=== PATIENT | female | born 1930 | race Caucasian/White ===

== ENCOUNTER 2016-12-21 05:52 | Day surgery (SDC) | payer OTHER ==
[~2016-12-21] VITALS: Ht 165.1 cm; Wt 77.1 kg
[~2016-12-21 05:52] MED LIST: ADVAIR 250/501 DISK IH; ALDACTONE50 MG PO; AMLODIPINE BESY10 MG PO; ASPIR 8181 M1 PO; Advair 250/50 Diskus IH; Anusol HC,Anucort-HC PR; CARVEDILOL6.25 MG PO; CLARITIN,ALAVAR10 MG PO; CLARITIN10 M3 PO; DIOVAN HCT 11 TABLET PO; DIOVAN160 MG PO; DULERA 200 MCG/13 GM IH; Diovan PO; DuoNeb IH; FLONASE16 G1 BOTH NARES; FLOVENT 11120 INHALA IH; GABAPENTIN600 MG PO; HYDROCODON-ACE1 EAC7 PO; HYZAAR 100-11 TABLET PO; IRON325 M1 PO; K-DUR20 MEQ PO; LATANOPROST2.5 ML BOTH EYES; LEXAPRO10 MG PO; LOSARTAN POTASS50 MG PO; LOW DOSE ASPIRI81 M2 PO; Levaquin PO; NAPROSYN500 MG PO; NORCO 5/3251 TABLET PO; NORVASC10 MG PO; PROAIR HFA8.5 GM IH; PROTONIX40 MG PO; PROVENTIL HFA6.7 GM IH; Protonix PO; SINGULAIR10 MG PO; SPIRONOLACTONE50 MG PO; TAMIFLU75 MG PO; TYLENOL EXTRA500 MG PO; VITAMIN D31000 UNIT PO; Vitamin D PO; ZYRTEC10 M3 PO; predniSONE PO
[2016-12-21 06:32] VITALS: BP 125/67
[2016-12-21 09:23] VITALS: BP 136/63
[2016-12-21 10:23] VITALS: BP 120/52
== END 2016-12-21 10:35 | disposition home or self-care (01) ==
LOC: SDC 05:52
DX: N13.5 Crossing vessel and stricture of ureter without hydronephrosis (principal); Z90.5 Acquired absence of kidney
CPT/HCPCS: 74000; C1876; J0692; J2405; J7050

== ENCOUNTER → 2016-12-26 | Outpatient (CLI) | payer OTHER | END | disposition home or self-care (01) | LOC: AMB 08:51 | DX: Z45.2 Encounter for adjustment and management of vascular access device (principal); I87.8 Other specified disorders of veins; Z85.038 Personal history of other malignant neoplasm of large intestine; Z92.21 Personal history of antineoplastic chemotherapy ==

== ENCOUNTER 2017-05-02 08:25 | Day surgery (SDC) | payer OTHER ==
[~2017-05-02] VITALS: Ht 160 cm; Wt 78.9 kg
[~2017-05-02 08:25] MED LIST changes: +ALDACTONE25 MG PO; +ALLEGRA ALLERG180 MG PO; +MELATONIN10 M1 PO; -SPIRONOLACTONE50 MG PO
[2017-05-02 08:58] VITALS: BP 161/69
[2017-05-02 10:50] VITALS: BP 155/66
[2017-05-02 12:02] VITALS: BP 140/68
== END 2017-05-02 12:00 | disposition home or self-care (01) ==
LOC: SDC 08:25
DX: N13.5 Crossing vessel and stricture of ureter without hydronephrosis (principal); I10 Essential (primary) hypertension; J45.909 Unspecified asthma, uncomplicated; K21.9 Gastro-esophageal reflux disease without esophagitis; I45.10 Unspecified right bundle-branch block
CPT/HCPCS: 74000; 76000; C1876; J0131; J3010

== ENCOUNTER → 2017-05-28 | Outpatient (CLI) | payer OTHER | END | disposition home or self-care (01) | LOC: EKG 13:00 | DX: I35.0 Nonrheumatic aortic (valve) stenosis (principal) | CPT/HCPCS: 93306 ==

== ENCOUNTER 2017-08-19 07:49 | Day surgery (SDC) | payer OTHER ==
[~2017-08-19] VITALS: Ht 160 cm; Wt 81.7 kg
[2017-08-19 09:23] VITALS: BP 156/70
[2017-08-19 11:06] VITALS: BP 167/72
[2017-08-19 11:41] VITALS: BP 143/65
== END 2017-08-19 11:55 | disposition home or self-care (01) ==
LOC: SDC 07:49
DX: N13.5 Crossing vessel and stricture of ureter without hydronephrosis (principal); Z90.5 Acquired absence of kidney; Z87.440 Personal history of urinary (tract) infections; Z86.19 Personal history of other infectious and parasitic diseases; I10 Essential (primary) hypertension; J45.909 Unspecified asthma, uncomplicated; Z85.43 Personal history of malignant neoplasm of ovary
CPT/HCPCS: 74000; 76000; 87077; 87086; 87186; C1758; J0692; J3010; J7050

== ENCOUNTER 2017-10-07 19:44 | Inpatient (IN) | payer OTHER ==
[~2017-10-07] VITALS: Ht 160 cm; Wt 80.4 kg
[~2017-10-07 19:44] MED LIST changes: -ALDACTONE25 MG PO; -CARVEDILOL6.25 MG PO; -GABAPENTIN600 MG PO; -LATANOPROST2.5 ML BOTH EYES; -LEXAPRO10 MG PO; -PROAIR HFA8.5 GM IH; -SINGULAIR10 MG PO; -TYLENOL EXTRA500 MG PO; -VITAMIN D31000 UNIT PO
[2017-10-07 21:30] LABS: HEMATOCRIT 32.1 % (36.0-46.0); MCH 32.1 PG (29.0-34.0); MCHC 34.3 G/DL (30.0-36.0); MCV 93.6 FL (83-99); PLATELET COUNT 250 K/uL (156-360); RBC DIS.WIDTH-CV 13.2 % (11.8-14.6); RBC DIS.WIDTH-SD 45.6 % (39-53); RED BLOOD COUNT 3.43 M/uL (3.80-5.20); WHITE BLOOD COUNT 15.8 K/uL (4.1-10.2)
[2017-10-07 21:43] LABS: CHLORIDE 105 mEq/L (99-109); POTASSIUM 4.7 mEq/L (3.7-5.4); SODIUM 134 mEq/L (136-147)
[2017-10-07 21:44] LABS: GLUCOSE 130 mg/dL (70-99)
[2017-10-07 21:48] LABS: GFR ESTIMATE (CALCULATED) 25 mL/min/
[2017-10-07 21:49] LABS: UREA NITROGEN (BUN) 39 mg/dL (9-23)
[2017-10-08 08:52] LABS: HEMATOCRIT 31.7 % (36.0-46.0); HEMOGLOBIN 10.6 G/DL (11.9-15.5); MCH 31.5 PG (29.0-34.0); MCHC 33.4 G/DL (30.0-36.0); MCV 94.1 FL (83-99); PLATELET COUNT 229 K/uL (156-360); RBC DIS.WIDTH-CV 13.2 % (11.8-14.6); RBC DIS.WIDTH-SD 45.7 % (39-53); RED BLOOD COUNT 3.37 M/uL (3.80-5.20)
[2017-10-08 09:05] LABS: CHLORIDE 110 mEq/L (99-109); SODIUM 134 mEq/L (136-147)
[2017-10-08 09:07] LABS: GLUCOSE 108 mg/dL (70-99)
[2017-10-08 09:11] LABS: CREATININE 1.7 mg/dL (0.6-1.3); GFR ESTIMATE (CALCULATED) 30 mL/min/
[2017-10-08 09:12] LABS: UREA NITROGEN (BUN) 46 mg/dL (9-23)
[2017-10-08] MEDS ORDERED: PROAIR HFA8.5 GM IH (14:38)
[2017-10-08] MEDS ORDERED: GABAPENTIN600 MG PO (14:38)
[2017-10-08] MEDS ORDERED: LEXAPRO10 MG PO (14:38)
[2017-10-08] MEDS ORDERED: LATANOPROST2.5 ML BOTH EYES (14:39)
[2017-10-08] MEDS ORDERED: SINGULAIR10 MG PO (14:39)
[2017-10-08] MEDS ORDERED: ALDACTONE50 MG PO (14:39)
[2017-10-08] MEDS ORDERED: PROTONIX40 MG PO (14:39)
[2017-10-08] MEDS ORDERED: TYLENOL EXTRA500 MG PO (14:39)
[2017-10-08] MEDS ORDERED: CARVEDILOL6.25 MG PO (14:39)
[2017-10-08] MEDS ORDERED: FLONASE16 G1 BOTH NARES (14:39)
[2017-10-08] MEDS ORDERED: VITAMIN D31000 UNIT PO (14:39)
[2017-10-08] MEDS ORDERED: COZAAR25 MG PO (14:42)
[2017-10-08] MEDS ORDERED: CLARITIN,ALAVAR10 MG PO (14:42)
[2017-10-08] MEDS ORDERED: ADVAIR 250/501 DISK IH (14:42)
[2017-10-08] MEDS ORDERED: PHENAZOPYRIDIN100 MG PO (14:43)
[2017-10-08] MEDS ORDERED: LEVAQUIN250 MG PO (14:43)
[2017-10-08] MEDS ORDERED: DIOVAN HCT 11 TABLET PO (14:43)
[2017-10-08] MEDS ORDERED: AMLODIPINE BESY10 MG PO (14:44)
[2017-10-08] MEDS ORDERED: ADULT ASPIRIN R81 MG PO (14:44)
[2017-10-08 19:05] VITALS: BP 141/63
[2017-10-08 22:36] VITALS: BP 103/57
[2017-10-08 23:51] VITALS: BP 115/57
[2017-10-09 04:02] VITALS: BP 136/76
[2017-10-09 06:49] LABS: BASOPHIL (%) 0.3 % (0-1); EOSINOPHIL COUNT 0.1 K/uL (0-0.3); HEMATOCRIT 29.8 % (36.0-46.0); HEMOGLOBIN 9.7 G/DL (11.9-15.5); IMMATURE GRANULOCYTE (%) 0.8 % (0.0-0.7); LYMPHOCYTE COUNT 1.7 K/uL (1.0-2.8); MCH 30.7 PG (29.0-34.0); MCHC 32.6 G/DL (30.0-36.0); MCV 94.3 FL (83-99); MONOCYTE (%) 6.4 % (3-12); MONOCYTE COUNT 0.7 K/uL (0-0.8); NEUTROPHIL (%) 74.5 % (45-76); NEUTROPHIL COUNT 7.5 K/uL (1.8-6.4); PLATELET COUNT 243 K/uL (156-360); RBC DIS.WIDTH-CV 13.2 % (11.8-14.6); RBC DIS.WIDTH-SD 46.2 % (39-53); RED BLOOD COUNT 3.16 M/uL (3.80-5.20); WHITE BLOOD COUNT 10.1 K/uL (4.1-10.2)
[2017-10-09 07:17] LABS: CREATININE 1.6 MG/DL (0.6-1.3); GFR ESTIMATE (CALCULATED) 33 mL/min/; GLUCOSE 108 mg/dL (70-99); SODIUM 139 MEQ/L (136-147); UREA NITROGEN (BUN) 47 mg/dL (9-23)
[2017-10-09 07:22] LABS: CHLORIDE 112 MEQ/L (99-109)
[2017-10-09 08:17] VITALS: BP 156/72
[2017-10-09 11:43] VITALS: BP 173/77
[2017-10-09] MEDS ORDERED: DIOVAN HCT 11 TABLET PO (13:00)
[2017-10-09 15:56] VITALS: BP 176/70
[2017-10-09 20:00] VITALS: BP 141/67
[2017-10-09 22:35] LABS: C DIFF TOXIN NEGATIVE (NEGATIVE)
[2017-10-09 23:57] VITALS: BP 145/66
[2017-10-10 08:52] LABS: HEMATOCRIT 30.1 % (36.0-46.0); HEMOGLOBIN 9.9 G/DL (11.9-15.5); MCH 31.2 PG (29.0-34.0); MCHC 32.9 G/DL (30.0-36.0); PLATELET COUNT 254 K/uL (156-360); RBC DIS.WIDTH-CV 13.4 % (11.8-14.6); RBC DIS.WIDTH-SD 46.7 % (39-53); RED BLOOD COUNT 3.17 M/uL (3.80-5.20); WHITE BLOOD COUNT 7.5 K/uL (4.1-10.2)
[2017-10-10 09:16] VITALS: BP 136/73
[2017-10-10 09:23] LABS: CHLORIDE 114 MEQ/L (99-109); CREATININE 1.5 MG/DL (0.6-1.3); GFR ESTIMATE (CALCULATED) 35 mL/min/; GLUCOSE 99 mg/dL (70-99); POTASSIUM 4.2 MEQ/L (3.7-5.4); SODIUM 140 MEQ/L (136-147); UREA NITROGEN (BUN) 37 mg/dL (9-23)
[2017-10-10 12:45] VITALS: BP 137/65
[2017-10-10 16:44] VITALS: BP 126/66
[2017-10-10 20:22] VITALS: BP 143/60
[2017-10-11 00:32] VITALS: BP 137/63
[2017-10-11 04:09] VITALS: BP 124/56
[2017-10-11 06:54] LABS: HEMATOCRIT 30.5 % (36.0-46.0); HEMOGLOBIN 9.7 G/DL (11.9-15.5); MCH 30.7 PG (29.0-34.0); MCHC 31.8 G/DL (30.0-36.0); MCV 96.5 FL (83-99); PLATELET COUNT 266 K/uL (156-360); RBC DIS.WIDTH-CV 13.6 % (11.8-14.6); RBC DIS.WIDTH-SD 48.7 % (39-53); RED BLOOD COUNT 3.16 M/uL (3.80-5.20); WHITE BLOOD COUNT 12.8 K/uL (4.1-10.2)
[2017-10-11 07:20] LABS: CHLORIDE 112 MEQ/L (99-109); CREATININE 1.5 MG/DL (0.6-1.3); GFR ESTIMATE (CALCULATED) 35 mL/min/; GLUCOSE 107 mg/dL (70-99); POTASSIUM 4.9 MEQ/L (3.7-5.4); SODIUM 136 MEQ/L (136-147); UREA NITROGEN (BUN) 36 mg/dL (9-23)
[2017-10-11 08:08] VITALS: BP 107/53
== END 2017-10-11 13:52 | disposition home or self-care (01) | DRG 871 ==
LOC: EME → EDBD 19:44 → EME 19:44 → 5SOUTH 10-08 00:51 → EDOF 10-08 00:51 → ENRESERV 10-08 00:53 → 5SOUTH 10-08 17:13
PROVIDERS: Emergency Medicine; Hospitalist; Internal Medicine; Physician Assistant Medical
DX: A41.9 Sepsis, unspecified organism (principal); N13.6 Pyonephrosis; G93.40 Encephalopathy, unspecified; N17.9 Acute kidney failure, unspecified; E86.0 Dehydration; E87.1 Hypo-osmolality and hyponatremia; C78.6 Secondary malignant neoplasm of retroperitoneum and peritoneum; B37.3 Candidiasis of vulva and vagina; I10 Essential (primary) hypertension; J45.909 Unspecified asthma, uncomplicated; F32.9 Major depressive disorder, single episode, unspecified; F41.9 Anxiety disorder, unspecified; D64.9 Anemia, unspecified; M19.90 Unspecified osteoarthritis, unspecified site; Z92.21 Personal history of antineoplastic chemotherapy; Z85.43 Personal history of malignant neoplasm of ovary; Z85.528 Personal history of other malignant neoplasm of kidney; Z90.5 Acquired absence of kidney; Z87.440 Personal history of urinary (tract) infections; Z87.442 Personal history of urinary calculi
CPT/HCPCS: 36415; 70450; 71046; 74176; 80048; 80048 91; 81003; 83605; 85025; 85027; 87040; 87086; 87106; 87493; 94640 76; 99281; 99285; J0696; J1335; J1644; J1956; J7030; J7050; J7120

== ENCOUNTER 2018-01-20 10:26 | Day surgery (SDC) | payer OTHER ==
[~2018-01-20] VITALS: Ht 162.6 cm; Wt 81.2 kg
[~2018-01-20 10:26] MED LIST changes: +ADULT ASPIRIN R81 MG PO; +BREO ELLIPTA 21 EACH IH; +CARVEDILOL6.25 MG PO; +COZAAR25 MG PO; +GABAPENTIN600 MG PO; +LATANOPROST2.5 ML BOTH EYES; +LEVAQUIN250 MG PO; +LEXAPRO10 MG PO; +PHENAZOPYRIDIN100 MG PO; +PROAIR HFA8.5 GM IH; +SINGULAIR10 MG PO; +TYLENOL EXTRA500 MG PO; +VITAMIN D31000 UNIT PO
[2018-01-20] MEDS ORDERED: TYLENOL PM EX-1 EACH PO (10:49)
[2018-01-20 10:56] VITALS: BP 148/71
[2018-01-20 13:24] VITALS: BP 149/87
[2018-01-20 14:19] VITALS: BP 148/65
== END 2018-01-20 14:20 | disposition home or self-care (01) ==
LOC: SDC 10:26
DX: N13.5 Crossing vessel and stricture of ureter without hydronephrosis (principal); N30.20 Other chronic cystitis without hematuria; J45.909 Unspecified asthma, uncomplicated; I10 Essential (primary) hypertension; Z85.528 Personal history of other malignant neoplasm of kidney; Z90.5 Acquired absence of kidney; Z85.09 Personal history of malignant neoplasm of other digestive organs; Z82.49 Family history of ischemic heart disease and other diseases of the circulatory system; Z88.1 Allergy status to other antibiotic agents; Z88.8 Allergy status to other drugs, medicaments and biological substances; Z91.048 Other nonmedicinal substance allergy status
CPT/HCPCS: C2625; J1580; J7050

== ENCOUNTER → 2018-03-12 | Outpatient (CLI) | payer OTHER ==
[~2018-03-12] MED LIST changes: +BREO ELLIPTA I1 EACH IH; +TYLENOL PM EX-1 EACH PO
== END | disposition home or self-care (01) ==
LOC: AMB 09:50
PROC: 0HB5XZZ Excision of Chest Skin, External Approach (ICD-10-PCS; principal; 2018-03-12)
DX: L72.0 Epidermal cyst (principal)
CPT/HCPCS: 88305

== ENCOUNTER 2018-04-04 10:34 | Emergency (ER) | payer OTHER ==
[~2018-04-04] VITALS: Ht 162.6 cm; Wt 77.0 kg
[2018-04-04 11:30] LABS: APPEARANCE TURBID ((CLEAR)); BILIRUBIN NEGATIVE; BLOOD MODERATE; COLOR YELLOW ((YELLOW)); GLUCOSE (STRIP) NEGATIVE; KETONES NEGATIVE; LEUKOCYTES LARGE; NITRITE NEGATIVE; PROTEIN (STRIP) 100; SPECIFIC GRAVITY 1.009 (1.000-1.030); UROBILINOGEN 0.2 MG/DL (0.2-1.0)
[2018-04-04 11:43] LABS: BACTERIA 2+ /HPF; EPITHELIAL CELLS 1+ /HPF; MUCUS NONE SEEN /LPF; UCUL ADDED? YES; WHITE BLOOD CELLS TNTC /HPF (0-5)
[2018-04-04] MEDS ORDERED: LEVAQUIN500 MG PO (12:30)
[2018-04-04 12:49] VITALS: BP 131/64
== END 2018-04-04 13:04 | disposition home or self-care (01) ==
LOC: EME 10:34
DX: N39.0 Urinary tract infection, site not specified (principal); I10 Essential (primary) hypertension; J45.909 Unspecified asthma, uncomplicated; Z90.5 Acquired absence of kidney; Z87.440 Personal history of urinary (tract) infections; Z88.1 Allergy status to other antibiotic agents
CPT/HCPCS: 81003; 87086; 99281; 99284

== ENCOUNTER → 2018-04-24 | Outpatient (CLI) | payer OTHER ==
[~2018-04-24] MED LIST changes: +LEVAQUIN500 MG PO
== END | disposition home or self-care (01) ==
LOC: EKG1 11:42
DX: Z01.810 Encounter for preprocedural cardiovascular examination (principal); N13.5 Crossing vessel and stricture of ureter without hydronephrosis; I45.10 Unspecified right bundle-branch block; I44.4 Left anterior fascicular block
CPT/HCPCS: 93005

== ENCOUNTER 2018-05-03 13:35 | Inpatient (IN) | payer OTHER ==
[~2018-05-03] VITALS: Ht 162.6 cm; Wt 80.8 kg
[~2018-05-03 13:35] MED LIST changes: +ALDACTONE25 MG PO
[2018-05-03 14:06] LABS: HEMOGLOBIN 9.5 G/DL (11.9-15.5); MCH 31.3 PG (29.0-34.0); MCHC 33.9 G/DL (30.0-36.0); MCV 92.1 FL (83-99); PLATELET COUNT 270 K/uL (156-360); RBC DIS.WIDTH-CV 13.2 % (11.8-14.6); RBC DIS.WIDTH-SD 44.5 % (39-53); RED BLOOD COUNT 3.04 M/uL (3.80-5.20); WHITE BLOOD COUNT 10.5 K/uL (4.1-10.2)
[2018-05-03 14:11] LABS: APPEARANCE TURBID ((CLEAR)); BILIRUBIN NEGATIVE; BLOOD MODERATE; COLOR YELLOW ((YELLOW)); GLUCOSE (STRIP) NEGATIVE; KETONES NEGATIVE; LEUKOCYTES LARGE; NITRITE NEGATIVE; PROTEIN (STRIP) >=500; SPECIFIC GRAVITY 1.008 (1.000-1.030); UROBILINOGEN 0.2 MG/DL (0.2-1.0)
[2018-05-03 14:27] LABS: BACTERIA 2+ /HPF; EPITHELIAL CELLS 1+ /HPF; MUCUS NONE SEEN /LPF; UCUL ADDED? YES; WHITE BLOOD CELLS TNTC /HPF (0-5)
[2018-05-03 14:29] LABS: CHLORIDE 104 MEQ/L (99-109); POTASSIUM 4.4 MEQ/L (3.7-5.4); SODIUM 132 MEQ/L (136-147)
[2018-05-03 14:35] LABS: CREATININE 3.6 MG/DL (0.6-1.3); GFR ESTIMATE (CALCULATED) 13 mL/min/; GLUCOSE 112 mg/dL (70-99); UREA NITROGEN (BUN) 36 mg/dL (9-23)
[2018-05-03 15:18] LABS: ALBUMIN 3.4 G/DL (3.2-4.8); ALKALINE PHOSPHATASE 71 IU/L (3-129); ALT (GPT) 5 IU/L (3-49); AST (GOT) 9 IU/L (2-34); TOTAL BILIRUBIN 0.4 MG/DL (0.0-1.0); TOTAL PROTEIN 7.3 G/DL (6.4-8.3)
[2018-05-03] MEDS ORDERED: COZAAR25 MG PO (17:17)
[2018-05-03 19:56] LABS: MAGNESIUM 1.2 mg/dl (1.3-2.7)
[2018-05-03 19:58] LABS: TROP-I INTERPRETATION NEGATIVE; TROPONIN-I 0.01 ng/mL (0.0-0.30)
[2018-05-03 20:00] VITALS: BP 187/79
[2018-05-03 20:01] VITALS: BP 187/79
[2018-05-04 00:01] VITALS: BP 145/64
[2018-05-04 05:01] VITALS: BP 124/60
[2018-05-04 06:12] LABS: HEMATOCRIT 26.7 % (36.0-46.0); HEMOGLOBIN 8.7 G/DL (11.9-15.5); MCH 30.5 PG (29.0-34.0); MCHC 32.6 G/DL (30.0-36.0); MCV 93.7 FL (83-99); PLATELET COUNT 261 K/uL (156-360); RBC DIS.WIDTH-CV 13.2 % (11.8-14.6); RBC DIS.WIDTH-SD 45.3 % (39-53); RED BLOOD COUNT 2.85 M/uL (3.80-5.20); WHITE BLOOD COUNT 8.5 K/uL (4.1-10.2)
[2018-05-04 06:39] LABS: ALBUMIN 2.9 G/DL (3.2-4.8); CHLORIDE 110 MEQ/L (99-109); CREATININE 3.2 MG/DL (0.6-1.3); GFR ESTIMATE (CALCULATED) 15 mL/min/; GLUCOSE 94 mg/dL (70-99); PHOSPHORUS 4.6 mg/dL (2.5-4.9); POTASSIUM 4.2 MEQ/L (3.7-5.4); UREA NITROGEN (BUN) 34 mg/dL (9-23)
[2018-05-04 06:43] LABS: SODIUM 139 MEQ/L (136-147)
[2018-05-04 07:44] VITALS: BP 168/75
[2018-05-04 15:36] VITALS: BP 147/65
[2018-05-04 19:44] VITALS: BP 184/79
[2018-05-04 23:32] VITALS: BP 174/65
[2018-05-05] VITALS (7 sets, daily range): BP systolic 128–173; BP diastolic 60–72
[2018-05-05 05:41] LABS: BASOPHIL (%) 0.4 % (0-1); EOSINOPHIL (%) 1.7 % (0-5); EOSINOPHIL COUNT 0.1 K/uL (0-0.3); HEMOGLOBIN 9.3 G/DL (11.9-15.5); IMMATURE GRANULOCYTE (%) 0.7 % (0.0-0.7); LYMPHOCYTE COUNT 2.3 K/uL (1.0-2.8); MCH 30.2 PG (29.0-34.0); MCHC 32.1 G/DL (30.0-36.0); MCV 94.2 FL (83-99); MONOCYTE (%) 8.6 % (3-12); MONOCYTE COUNT 0.7 K/uL (0-0.8); NEUTROPHIL (%) 58.6 % (45-76); NEUTROPHIL COUNT 4.5 K/uL (1.8-6.4); PLATELET COUNT 298 K/uL (156-360); RBC DIS.WIDTH-CV 13.2 % (11.8-14.6); RBC DIS.WIDTH-SD 46.2 % (39-53); RED BLOOD COUNT 3.08 M/uL (3.80-5.20); WHITE BLOOD COUNT 7.7 K/uL (4.1-10.2)
[2018-05-05 06:52] LABS: CHLORIDE 108 MEQ/L (99-109); GLUCOSE 107 mg/dL (70-99); IRON 36 MCG/DL (35-150); PHOSPHORUS 3.5 mg/dL (2.5-4.9); POTASSIUM 4.3 MEQ/L (3.7-5.4); SODIUM 137 MEQ/L (136-147); TRANSFERRIN (TIBC) 166.8 mg/dL (215-380); TRANSFERRIN SATUR. 22 % (20-55); UREA NITROGEN (BUN) 26 mg/dL (9-23)
[2018-05-05 06:53] LABS: CREATININE 2.6 MG/DL (0.6-1.3); GFR ESTIMATE (CALCULATED) 19 mL/min/
[2018-05-05 08:37] LABS: FOLIC ACID (FOLATE) 10.3 NG/ML (5.0-22.0)
[2018-05-05 10:29] LABS: FERRITIN 319 NG/ML (10-291)
[2018-05-06 04:19] VITALS: BP 152/70
[2018-05-06 06:13] LABS: BASOPHIL (%) 0.6 % (0-1); EOSINOPHIL (%) 3.5 % (0-5); EOSINOPHIL COUNT 0.2 K/uL (0-0.3); HEMATOCRIT 27.4 % (36.0-46.0); HEMOGLOBIN 8.9 G/DL (11.9-15.5); IMMATURE GRANULOCYTE (%) 1.2 % (0.0-0.7); LYMPHOCYTE (%) 40.7 % (15-42); LYMPHOCYTE COUNT 2.7 K/uL (1.0-2.8); MCH 30.9 PG (29.0-34.0); MCHC 32.5 G/DL (30.0-36.0); MCV 95.1 FL (83-99); MONOCYTE (%) 7.4 % (3-12); MONOCYTE COUNT 0.5 K/uL (0-0.8); NEUTROPHIL (%) 46.6 % (45-76); NEUTROPHIL COUNT 3.1 K/uL (1.8-6.4); PLATELET COUNT 300 K/uL (156-360); RBC DIS.WIDTH-CV 13.2 % (11.8-14.6); RBC DIS.WIDTH-SD 45.7 % (39-53); RED BLOOD COUNT 2.88 M/uL (3.80-5.20); WHITE BLOOD COUNT 6.6 K/uL (4.1-10.2)
[2018-05-06 06:31] LABS: ALBUMIN 3.2 G/DL (3.2-4.8); CHLORIDE 109 MEQ/L (99-109); CREATININE 2.2 MG/DL (0.6-1.3); GFR ESTIMATE (CALCULATED) 22 mL/min/; GLUCOSE 100 mg/dL (70-99); PHOSPHORUS 3.2 mg/dL (2.5-4.9); POTASSIUM 4.4 MEQ/L (3.7-5.4); SODIUM 138 MEQ/L (136-147); UREA NITROGEN (BUN) 26 mg/dL (9-23)
[2018-05-06 06:32] LABS: CHLORIDE 109 MEQ/L (99-109); CREATININE 2.2 MG/DL (0.6-1.3); GFR ESTIMATE (CALCULATED) 22 mL/min/; GLUCOSE 99 mg/dL (70-99); MAGNESIUM 1.2 mg/dl (1.3-2.7); POTASSIUM 4.2 MEQ/L (3.7-5.4); SODIUM 138 MEQ/L (136-147); UREA NITROGEN (BUN) 26 mg/dL (9-23)
[2018-05-06 07:55] VITALS: BP 149/70
[2018-05-06 11:28] VITALS: BP 140/63
[2018-05-06] MEDS ORDERED: AMLODIPINE BESYL5 MG PO (12:13)
[2018-05-06] MEDS ORDERED: SLOW-MAG,MAG DE64 MG PO (12:15)
[2018-05-06] MEDS ORDERED: CEFDINIR300 MG PO (12:16)
== END 2018-05-06 13:28 | disposition home or self-care (01) | DRG 699 ==
LOC: EME 13:35 → EDOF 18:38 → ENRESERV 18:39 → 3EAST 19:33
PROVIDERS: Hospitalist; Internal Medicine; Internal Medicine Nephrology; Physician Assistant Medical
PROC: 0T9680Z Drainage of Right Ureter with Drainage Device, Via Natural or Artificial Opening Endoscopic (ICD-10-PCS; principal; 2018-05-03)
PROC: 0TP98DZ Removal of Intraluminal Device from Ureter, Via Natural or Artificial Opening Endoscopic (ICD-10-PCS; principal; 2018-05-03)
DX: T83.592A Infection and inflammatory reaction due to indwelling ureteral stent, initial encounter (principal); N13.6 Pyonephrosis; N17.9 Acute kidney failure, unspecified; Y83.8 Other surgical procedures as the cause of abnormal reaction of the patient, or of later complication, without mention of misadventure at the time of the procedure; Z90.5 Acquired absence of kidney; M19.90 Unspecified osteoarthritis, unspecified site; M81.0 Age-related osteoporosis without current pathological fracture; I45.10 Unspecified right bundle-branch block; E87.2 Acidosis; E87.1 Hypo-osmolality and hyponatremia; J45.909 Unspecified asthma, uncomplicated; I12.9 Hypertensive chronic kidney disease with stage 1 through stage 4 chronic kidney disease, or unspecified chronic kidney disease; N18.9 Chronic kidney disease, unspecified; Z85.43 Personal history of malignant neoplasm of ovary; Z85.528 Personal history of other malignant neoplasm of kidney; E86.0 Dehydration; F32.9 Major depressive disorder, single episode, unspecified; F41.9 Anxiety disorder, unspecified; K21.9 Gastro-esophageal reflux disease without esophagitis; E83.42 Hypomagnesemia; Z87.440 Personal history of urinary (tract) infections; Z92.21 Personal history of antineoplastic chemotherapy; E78.5 Hyperlipidemia, unspecified; Z87.442 Personal history of urinary calculi; D51.9 Vitamin B12 deficiency anemia, unspecified
CPT/HCPCS: 74176; 74420; 80048; 80048 91; 80069; 80076; 81003; 82306; 82607; 82728; 82746; 83540; 83605; 83735; 84466; 84484; 85025; 85027; 87040; 87086; 87106; 94640; 94799; 99281; 99285; J0696; J1335; J1644; J3010; J3475; J7030; J7050; J7120